=== PATIENT | female | born 1995 | race Native Hawaiian/Other Pacific Islander ===

== ENCOUNTER 2017-05-16 23:49 | Emergency (ER) | payer OTHER ==
[~2017-05-16] VITALS: Ht 154.9 cm; Wt 79.8 kg
[2017-05-17 00:48] LABS: PLATELET COUNT 170 K/uL (152-353)
[2017-05-17 01:12] LABS: POTASSIUM 3.1 mmol/L (3.6-5.2); SODIUM 138 mmol/L (136-145)
[2017-05-17 02:00] VITALS: BP 110/69; TEMP 98.4
== END 2017-05-17 02:01 | disposition home or self-care (01) ==
LOC: ED 23:49
DX: J18.9 Pneumonia, unspecified organism (principal); J02.9 Acute pharyngitis, unspecified
CPT/HCPCS: 80053; 80307; 81000; 85027; 87081; 87880; 96372; 99284; G0479; J0696

== ENCOUNTER 2020-02-20 10:47 | Outpatient (CLI) | payer OTHER | END 2020-02-20 22:52 | disposition home or self-care (01) | LOC: LAB 10:47 | DX: R50.9 Fever, unspecified (principal) | CPT/HCPCS: 87635; 87651; G2023; U00003 ==

== ENCOUNTER 2020-10-28 09:02 | Outpatient (CLI) | payer OTHER ==
[2020-10-28 09:25] LABS: PLATELET COUNT 171 K/uL (152-353)
[2020-10-28 09:57] LABS: POTASSIUM 3.8 mmol/L (3.6-5.2)
== END 2020-10-28 21:57 | disposition home or self-care (01) ==
LOC: LABW 09:02
PROVIDERS: ATTEND Internal Medicine
DX: N92.1 Excessive and frequent menstruation with irregular cycle (principal); D50.9 Iron deficiency anemia, unspecified; G47.00 Insomnia, unspecified; L65.9 Nonscarring hair loss, unspecified; G43.909 Migraine, unspecified, not intractable, without status migrainosus
CPT/HCPCS: 36415; 80053; 82465; 82607; 82728; 83540; 83550; 83718; 83721; 84439; 84443; 84478; 85027; 86038; 86140